=== PATIENT | female | born 1955 | race Caucasian/White ===

== ENCOUNTER 2017-02-05 15:52 | Day surgery (SDC) | payer MEDICAID ==
[~2017-02-05 15:52] MED LIST: EPINEPHRINE INJ 1 MG/10 ML DISP.SYRIN ONE; FENTANYL CITRATE INJ/PF 100 MCG/2 ML AMPUL ONE; FLUMAZENIL INJ 0.5 MG/5 ML VIAL IV ONE; GLUCAGON,HUMAN RECOMB 1 MG INJ ONE; MIDAZOLAM 2 MG/2 ML INJ ONE; NALOXONE HCL INJ/PF 0.4 MG/1 ML SDV ONE
[2017-02-05] MEDS: MIDAZOLAM 2 MG/2 ML INJ ONE ×2 (17:22→17:28)
--- NOTE | 2017-02-05 17:44 | Operative Report ---
Operative Report DATE OF SURGERY: 02/05/17 Operative Report: Pre-op diagnosis: History of GI bleed and microcytic anemia Post-op diagnosis: Large hiatal hernia with mild antral gastritis Surgery: Esophagogastroduodenoscopy with biopsy Medications: Versed 4mg Fentanyl 100mcg IV push Tissue removed: Antral biopsy for pathology Procedure: After informed consent obtained from patient, the throat was sprayed with Hurricane and conscious sedation was achieved. The upper endoscope was inserted into the esophagus under direct vision and advanced into the stomach. The duodenum was entered and examined to the second part. Endoscope was then slowly pulled out of the patient as the mucosa was examined into details. Patient tolerated procedure well. Findings Esophagus: Normal Z-line at: 32 cm Antrum: Mild erythema Body: Normal Fundus: Large hiatal hernia containing at least half of the stomach Duodenum first part: Normal Duodenum second part: Normal Plan: Await pathology. Continue omeprazole and referred to thoracic surgery OPERATION: .
[2017-02-05 19:02] VITALS: BP 155/86
[2017-02-05 20:27] LABS: FERRITIN 5.03 ng/mL (11.1-264.0)
== END 2017-02-05 19:20 | disposition home or self-care (01) ==
LOC: END 15:52
PROVIDERS: ATTEND Internal Medicine Gastroenterology
PROC: 0DB68ZX Excision of Stomach, Via Natural or Artificial Opening Endoscopic, Diagnostic (ICD-10-PCS; principal; 2017-02-05 16:30)
DX: K44.9 Diaphragmatic hernia without obstruction or gangrene (principal); K31.9 Disease of stomach and duodenum, unspecified; D50.9 Iron deficiency anemia, unspecified; R07.9 Chest pain, unspecified; K20.9 Esophagitis, unspecified; J45.909 Unspecified asthma, uncomplicated; E66.9 Obesity, unspecified; Z79.899 Other long term (current) drug therapy; Z79.51 Long term (current) use of inhaled steroids; Z91.040 Latex allergy status; Z68.31 Body mass index [BMI] 31.0-31.9, adult
CPT/HCPCS: 43239; 36415; 82728; 83540; 83550; 88342 ×2; 88305 ×2; J2250; J3010; J0171; J1610; J2310; J3490

== ENCOUNTER 2020-04-04 18:57 | Inpatient (IN) | payer MEDICARE ==
--- NOTE | 2020-04-04 20:47 | ER Document Report ---
ED Medical Screen (RME) - General Chief Complaint: Vomiting Stated Complaint: VOMITING BLOOD Time Seen by Provider: 04/04/20 20:44 Mode of Arrival: Ambulatory Information source: Patient Notes: 64-year-old female presents to ED for throwing up blood since Saturday. She states that they did call Dr. Iniguez and he told him to come to the emergency room get blood drawn. I have ordered CBC chemistry coags urine and type and screen. She does have a history of ulcers. She also has a history of spinal injuries with surgery fractures to the left and right wrist with surgery C- section hysterectomy tonsillectomy and a gallbladder removal. She states she has never smoke drink or do any drugs. She is alert respirations regular nonlabored. TRAVEL OUTSIDE OF THE [place] IN LAST 30 DAYS: No - Related Data Allergies/Adverse Reactions: moxifloxacin HCl [From Avelox] Allergy (Severe, Verified 02/04/17 14:46) SICK TO STOMACH Sulfa (Sulfonamide Antibiotics) Allergy (Intermediate, Verified 02/04/17 14:46) ITCHING latex Allergy (Mild, Verified 02/04/17 14:49) RASH aspirin Adverse Reaction (Severe, Verified 02/04/17 14:46) BLEEDING NSAIDS (Non-Steroidal Anti-Inflamma Adverse Reaction (Severe, Verified 02/04/17 14:46) BLEEDING amoxicillin Adverse Reaction (Mild, Verified 02/04/17 14:46) DOES NOT HELP WITH INFECTION Past Medical History - Social History Frequency of alcohol use: None Drug Abuse: None - Past Medical History Cardiac Medical History: Denies: Hx Coronary Artery Disease, Hx Heart Attack, Hx Hypertension - "WHITE COAT SYNDROME" Pulmonary Medical History: Reports: Hx Asthma, Hx Bronchitis, Hx Pneumonia Denies: Hx COPD Neurological Medical History: Reports: Hx Migraine. Denies: Hx Cerebrovascular Accident, Hx Seizures GI Medical History: Reports: Hx Hiatal Hernia Musculoskeltal Medical History: Reports Hx Arthritis - OSTEO ARTHRITIS Past Surgical History: Reports: Hx Hysterectomy Physical Exam - Vital signs Vitals: Temp Pulse Resp BP Pulse Ox 98.1 F 92 18 142/94 H 100 04/04/20 19:07 04/04/20 19:07 04/04/20 19:07 04/04/20 19:07 04/04/20 19:07 Course - Vital Signs Vital signs: Temp Pulse Resp BP Pulse Ox 98.1 F 92 18 142/94 H 100 04/04/20 19:07 04/04/20 19:07 04/04/20 19:07 04/04/20 19:07 04/04/20 19:07
[2020-04-04 21:36] LABS: ABSOLUTE BASOPHILS # (AUTO) 0.1 10^3/uL (0.0-0.2); ABSOLUTE EOSINOPHILS # (AUTO) 0.1 10^3/uL (0.0-0.6); ABSOLUTE LYMPHOCYTES (AUTO) 3.1 10^3/uL (0.5-4.7); ABSOLUTE MONOCYTES (AUTO) 0.4 10^3/uL (0.1-1.4); ABSOLUTE NEUT (AUTO) 4.9 10^3/uL (1.7-8.2); BASOPHILS % (AUTO) 0.8 % (0-2); EOSINOPHILS % (AUTO) 1.5 % (0-6); HEMATOCRIT 30.1 % (36.0-47.0); HEMOGLOBIN 10.2 g/dL (12.0-15.5); MEAN CORPUSCULAR HEMOGLOBIN 33.2 pg (27.0-33.4); MEAN CORPUSCULAR VOLUME 98 fl (80-97); MONOCYTES % (AUTO) 5.1 % (3-13); PLATELET COUNT 196 10^3/uL (150-450); RED BLOOD COUNT 3.08 10^6/uL (3.72-5.28); RED CELL DISTRIBUTION WIDTH 13.9 % (11.5-14.0); SEGMENTED NEUTROPHILS % (AUTO) 56.6 % (42-78); TOTAL CELLS COUNTED % (AUTO) 100 %; WHITE BLOOD COUNT 8.7 10^3/uL (4.0-10.5)
[2020-04-04 21:42] LABS: INTERNATIONAL RATION (INR) 0.91; PROTHROMBIN TIME 12.5 SEC (11.4-15.4)
[2020-04-04 21:43] LABS: APPEARANCE,URINE CLEAR; BILIRUBIN,URINE NEGATIVE (NEGATIVE); COLOR,URINE YELLOW; GLUCOSE, URINE NEGATIVE (NEGATIVE); KETONES,URINE NEGATIVE (NEGATIVE); LEUKOCYTE ESTERASE,URINE SMALL (NEGATIVE); NITRITE,URINE NEGATIVE (NEGATIVE); PARTIAL THROMBOPLASTIN TIME 23.8 SEC (23.5-35.8); PROTEIN,URINE NEGATIVE (NEGATIVE); URINE SPECIFIC GRAVITY 1.015; UROBILINOGEN,URINE NEGATIVE mg/dL (<2.0)
[2020-04-04 21:53] LABS: ALBUMIN 4.4 g/dL (3.5-5.0); ALKALINE PHOSPHATASE 86 U/L (38-126); ANION GAP 7 (5-19); ASPARTATE AMINO TRANSFERASE 35 U/L (14-36); BILIRUBIN,DIRECT 0.2 mg/dL (0.0-0.4); BILIRUBIN,TOTAL 0.2 mg/dL (0.2-1.3); BLOOD UREA NITROGEN 14 mg/dL (7-20); CALCIUM 9.1 mg/dL (8.4-10.2); CARBON DIOXIDE 29 mmol/L (22-30); CHLORIDE 104 mmol/L (98-107); GLUCOSE 102 mg/dL (75-110); POTASSIUM 4.3 mmol/L (3.6-5.0); TOTAL PROTEIN 7.5 g/dL (6.3-8.2)
[2020-04-05] MEDS ORDERED: PANTOPRAZOLE SODIUM 40 MG VIAL IV ONE (04:15)
[2020-04-05] MEDS ORDERED: ONDANSETRON HCL INJ/PF 4 MG/2 ML SDV IV ONE (04:16)
--- NOTE | 2020-04-05 04:32 | ER Document Report ---
ED GI/ - General Chief Complaint: Vomiting Stated Complaint: VOMITING BLOOD Time Seen by Provider: 04/04/20 20:44 Mode of Arrival: Ambulatory Notes: Patient is a 64-year-old female that comes emergency department for chief complaints of concerned about a GI bleed. Patient states that on Saturday she vomited multiple times with bright red blood in her vomit, she states that she has had intermittent pain in her upper abdomen with nausea. She states that she has been very careful and has had a very bland diet with mostly clear fluids over the past 2 days however during the day today she had a dark black stool and became concerned. She states she called her internal carver Dr. Iniguez and he told her to come in for evaluation. She states that she has had 2 separate GI gastrointestinal bleeds in the past, she does have a history of gastric ulcers. She is not on any blood thinners, denies any NSAIDs, smoking, alcohol. She still reports intermittent nausea but denies dizziness, passing out, chest pain, shortness of breath, current abdominal pain, flank pain. TRAVEL OUTSIDE OF THE [place] IN LAST 30 DAYS: No - Related Data Allergies/Adverse Reactions: moxifloxacin HCl [From Avelox] Allergy (Severe, Verified 02/04/17 14:46) SICK TO STOMACH Sulfa (Sulfonamide Antibiotics) Allergy (Intermediate, Verified 02/04/17 14:46) ITCHING latex Allergy (Mild, Verified 02/04/17 14:49) RASH aspirin Adverse Reaction (Severe, Verified 02/04/17 14:46) BLEEDING NSAIDS (Non-Steroidal Anti-Inflamma Adverse Reaction (Severe, Verified 02/04/17 14:46) BLEEDING amoxicillin Adverse Reaction (Mild, Verified 02/04/17 14:46) DOES NOT HELP WITH INFECTION Past Medical History - General Information source: Patient - Social History Smoking Status: Never Smoker Frequency of alcohol use: None Drug Abuse: None Lives with: Alone Family History: Reviewed & Not Pertinent Patient has homicidal ideation: No - Past Medical History Cardiac Medical History: Denies: Hx Coronary Artery Disease, Hx Heart Attack, Hx Hypertension - "WHITE COAT SYNDROME" Pulmonary Medical History: Reports: Hx Asthma, Hx Bronchitis, Hx Pneumonia Denies: Hx COPD Neurological Medical History: Reports: Hx Migraine. Denies: Hx Cerebrovascular Accident, Hx Seizures Endocrine Medical History: Reports: Hx Hypothyroidism GI Medical History: Reports: Hx Hiatal Hernia Musculoskeletal Medical History: Reports Hx Arthritis - OSTEO ARTHRITIS Past Surgical History: Reports: Hx Cholecystectomy, Hx Hysterectomy - Immunizations Immunizations up to date: Yes Hx Diphtheria, Pertussis, Tetanus Vaccination: Yes Review of Systems - Review of Systems Constitutional: No symptoms reported EENT: No symptoms reported Cardiovascular: No symptoms reported Respiratory: No symptoms reported Gastrointestinal: See HPI Genitourinary: No symptoms reported Female Genitourinary: No symptoms reported Musculoskeletal: No symptoms reported Skin: No symptoms reported Hematologic/Lymphatic: No symptoms reported Neurological/Psychological: No symptoms reported Physical Exam - Vital signs Vitals: Temp Pulse Resp BP Pulse Ox 98.1 F 92 18 142/94 H 100 04/04/20 19:07 04/04/20 19:07 04/04/20 19:07 04/04/20 19:07 04/04/20 19:07 - Notes Notes: GENERAL: Alert, interacts well. No acute distress. HEAD: Normocephalic, atraumatic. EYES: Pupils equal, round, and reactive to light. Extraocular movements intact. ENT: Oral mucosa moist, tongue midline. Oropharynx unremarkable. Airway patent. NECK: Full range of motion. Supple. Trachea midline. No lymphadenopathy. LUNGS: Clear to auscultation bilaterally, no wheezes, rales, or rhonchi. No respiratory distress. Non-tender chest wall. HEART: Regular rate and rhythm. No murmur ABDOMEN: Soft, non-tender. Non-distended. Bowel sounds present in all 4 quadrants. GENITOURINARY: Deferred RECTAL: No concerning findings externally, no masses, tenderness, or concerning findings on palpation. Stool is black in appearance and Hemoccult positive. Exam performed with [address] at bedside. EXTREMITIES: Moves all 4 extremities spontaneously. No edema, normal radial and dorsalis pedis pulses bilaterally. No cyanosis. BACK: no cervical, thoracic, lumbar midline tenderness. No saddle anesthesia, normal distal neurovascular exam. Moves all extremities in full range of motion. NEUROLOGICAL: Alert and oriented x3. Normal speech. Cranial nerves II through XII grossly intact. Strength 5/5 in all extremities. PSYCH: Normal affect, normal mood. SKIN: Warm, dry, normal turgor. No rashes or lesions noted. Course - Re-evaluation Re-evalutation: Patient is alert and well-appearing on exam. Vital signs unremarkable. Abdomen unremarkable. However on rectal exam she does have black stools and this is heme positive. This along with patient's reported symptoms are concerning for upper GI bleed in a patient with a history of peptic ulcer disease. Hemoglobin is 10.2, type and screen has been performed. Starting on Protonix bolus and drip. Patient states her internal carver told her to come to the emergency department, they will be contacted for disposition. 04/05/20 05:36 I called and spoke with Dr. Iniguez, patient's internal carver previously. I discussed the details and her evaluation. His recommendation is admission to the hospitalist service and he will consult on the patient. He request a consult be placed for him. Patient had a brief episode of hypoxia which resolved. Chest x-ray performed and unremarkable, lungs clear. Discussed with Dr. Scott, hospitalist, patient will be accepted to medical floor under the hospitalist service. - Vital Signs Vital signs: Temp Pulse Resp BP Pulse Ox 98.6 F 87 14 146/78 H 98 04/05/20 05:45 04/05/20 03:57 04/05/20 06:00 04/05/20 06:00 04/05/20 06:00 - Laboratory Result Diagrams: 04/04/20 21:19 04/04/20 21:19 Laboratory results interpreted by me: 04/04/20 04/04/20 21:19 21:19 RBC 3.08 L Hgb 10.2 L Hct 30.1 L MCV 98 H Ur Leukocyte Esterase SMALL H Discharge - Discharge Clinical Impression: Upper GI bleed Disposition: ADMITTED INPATIENT Admitting Provider: Sonia (Hospitalist) Unit Admitted: Medical Floor
[2020-04-05] MEDS ORDERED: PANTOPRAZOLE SODIUM 40 MG VIAL IV PRN (04:48)
--- NOTE | 2020-04-05 06:23 | RADIOLOGY REPORT (SQ) ---
CLINICAL HISTORY: hypoxia COMPARISON: 12/13/2015. TECHNIQUE: XR CHEST 1 VIEW 04/05/2020 5:20 AM CDT FINDINGS: Cardiac silhouette is normal in size. Lungs are clear without consolidation, atelectasis, mass or edema. There is no pleural effusion. There is no pneumothorax. There are no acute osseous findings. There are surgical clips in the midline upper abdomen, presumably from a hiatal hernia repair. IMPRESSION: Clear lungs.
[2020-04-05] MEDS ORDERED: GUAIFENESIN SYRP 200 MG/10 ML UDC PO PRN (06:25)
[2020-04-05] MEDS ORDERED: MELATONIN 5 MG TABLET PO PRN (06:25)
[2020-04-05] MEDS ORDERED: MAG HYDROX/AL HYDROX/SIMETH SUSP 30 ML UDCUP PO PRN (06:25)
[2020-04-05] MEDS ORDERED: LORAZEPAM INJ 2 MG/1 ML VIAL IV PRN (06:25)
[2020-04-05] MEDS ORDERED: MORPHINE SULFATE 10 MG/ML INJ IV PRN (06:25)
[2020-04-05] MEDS ORDERED: ACETAMINOPHEN 325 MG TABLET PO PRN (06:25)
[2020-04-05] MEDS ORDERED: MAGNESIUM HYDROXIDE SUSP 30 ML UDCUP PO PRN (06:25)
[2020-04-05] MEDS ORDERED: PROMETHAZINE HCL INJ 25 MG/1 ML VIAL IV PRN (06:26)
[2020-04-05] MEDS ORDERED: RINGERS SOLUTION,LACTATED 1,000 ML IV PRN (09:22)
[2020-04-05] MEDS ORDERED: PANTOPRAZOLE SODIUM 40 MG VIAL IV SCH (10:00)
[2020-04-05] MEDS ORDERED: GLUCAGON,HUMAN RECOMB 1 MG INJ SUBCUT PRN (10:08)
[2020-04-05] MEDS ORDERED: DEXTROSE 40% GEL 15 GM TUBE PO PRN ×2 (10:08)
[2020-04-05] MEDS ORDERED: DEXTROSE 50%-WATER 25 GM/50 ML DISP.SYRIN IV PRN ×2 (10:08)
[2020-04-05] MEDS ORDERED: OXYCODONE-ACETAMINOPHEN 5-325 MG TABLET PO PRN (10:16)
[2020-04-05 10:52] LABS: ALBUMIN 3.7 g/dL (3.5-5.0); ALKALINE PHOSPHATASE 90 U/L (38-126); ANION GAP 5 (5-19); ASPARTATE AMINO TRANSFERASE 29 U/L (14-36); BILIRUBIN,DIRECT 0.3 mg/dL (0.0-0.4); BILIRUBIN,TOTAL 0.3 mg/dL (0.2-1.3); BLOOD UREA NITROGEN 9 mg/dL (7-20); CALCIUM 8.5 mg/dL (8.4-10.2); CARBON DIOXIDE 28 mmol/L (22-30); CHLORIDE 107 mmol/L (98-107); GLUCOSE 98 mg/dL (75-110); POTASSIUM 4.2 mmol/L (3.6-5.0); TOTAL PROTEIN 6.4 g/dL (6.3-8.2)
[2020-04-05] MEDS ORDERED: (PENDING PHARMACY ID) (Oxycodone Hcl/Acetaminophen [Percocet 10-325 Mg Tablet] 1 TAB) PO PRN (10:59)
[2020-04-05] MEDS ORDERED: CARISOPRODOL 350 MG TABLET PO PRN (10:59)
[2020-04-05] MEDS ORDERED: BUTALB/ACETAMINOPHEN/CAFFEINE 1 TAB EACH PO PRN (10:59)
[2020-04-05] MEDS: LEVOTHYROXINE SODIUM 0.1 MG TABLET PO SCH (11:43)
[2020-04-05] MEDS: GABAPENTIN 300 MG CAPSULE PO SCH ×3 (11:43→23:53)
[2020-04-05 11:53] LABS: HEMATOCRIT 25.6 % (36.0-47.0); MEAN CORPUSCULAR HEMOGLOBIN 33.8 pg (27.0-33.4); MEAN CORPUSCULAR HGB CONC 35.1 g/dL (32.0-36.0); MEAN CORPUSCULAR VOLUME 96 fl (80-97); PLATELET COUNT 152 10^3/uL (150-450); RED BLOOD COUNT 2.66 10^6/uL (3.72-5.28); RED CELL DISTRIBUTION WIDTH 13.7 % (11.5-14.0); WHITE BLOOD COUNT 5.4 10^3/uL (4.0-10.5)
[2020-04-05] MEDS ORDERED: SUCCINYLCHOLINE CHLORIDE INJ 200 MG/10 ML VIAL ONE (14:01)
[2020-04-05] MEDS: OXYCODONE-ACETAMINOPHEN 5-325 MG TABLET PO PRN ×2 (16:09→22:21)
--- NOTE | 2020-04-05 16:47 | PDOC H&P ---
History of Present Illness Admission Date/PCP: 04/05/20 06:51 Patient complains of: Hemoptysis History of Present Illness: APRIL HUERTAS is a 64 year old female with past medical history of asthma, hypothyroidism, arthritis, chronic pain, gastric ulcers, esophageal stricture previously treated with dilation, hiatal hernia with repair, previous GI bleed treated with 4 units of blood (2009) who presented to the emergency department on 04/04/20 complaining of 5-6 episodes of hematemesis (described as "bright red blood") x 3 days ago with noted black tarry stool x1 day ago. Associated nausea, diarrhea left upper abdominal discomfort and generalized weakness. This prompted her to contact her fire alarm operator Dr. Iniguez who told her to present to the emergency department for evaluation. Denies blood thinners, NSAIDs, smoking or alcohol. Evaluation in the emergency department significant for heme positive stools and Hemoglobin of 10.2. CBC, coag studies, chemistries, urine and CXR otherwise unremarkable. Given patient's history and current presentation patient was then admitted to hospital services for further evaluation and treatment. 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 Musculoskeltal Medical History: Reports: Arthritis - OSTEO ARTHRITIS Psychiatric Medical History: Reports: Depression Hematology: Reports: Anemia Past Surgical History Past Surgical History: Reports: Cholecystectomy, Herniorrhaphy, Hysterectomy, O rthopedic Surgery - Jaw., Other - x2. Esophageal dilation. Social History Information Source: Patient Lives with: Alone Smoking Status: Never Smoker Electronic Cigarette use?: No Frequency of Alcohol Use: None Hx Recreational Drug Use: No Hx Prescription Drug Abuse: No - Advance Directive Resuscitation Status: Full Code Family History Family History: Reviewed & Not Pertinent Parental Family History Reviewed: Yes Children Family History Reviewed: Yes Sibling(s) Family History Reviewed.: Yes Medication/Allergy Home Medications: Butalb/Acetaminophen/Caffeine [Ochemj-Jzzqrtls-Ccis 50-325-40] 1 tab PO Q8 PRN 12/14/15 Carisoprodol 350 mg PO BIDP PRN 02/04/17 Gabapentin [Neurontin] 600 mg PO Q6 04/05/20 Levothyroxine Sodium 100 mcg PO Q6AM 04/05/20 Oxycodone HCl/Acetaminophen [Percocet 10-325 mg Tablet] 1 tab PO Q6HP PRN 04/05/20 Allergies/Adverse Reactions: moxifloxacin HCl [From Avelox] Allergy (Severe, Verified 02/04/17 14:46) SICK TO STOMACH Sulfa (Sulfonamide Antibiotics) Allergy (Intermediate, Verified 02/04/17 14:46) ITCHING latex Allergy (Mild, Verified 02/04/17 14:49) RASH aspirin Adverse Reaction (Severe, Verified 02/04/17 14:46) BLEEDING NSAIDS (Non-Steroidal Anti-Inflamma Adverse Reaction (Severe, Verified 02/04/17 14:46) BLEEDING amoxicillin Adverse Reaction (Mild, Verified 02/04/17 14:46) DOES NOT HELP WITH INFECTION Review of Systems Constitutional: PRESENT: weakness. ABSENT: anorexia, chills, fever(s), headache(s), weight loss Eyes: ABSENT: visual disturbances Nose, Mouth, and Throat: ABSENT: headache(s), mouth pain, vertigo Cardiovascular: ABSENT: chest pain, dyspnea on exertion, edema, palpitations Respiratory: ABSENT: cough, dyspnea Gastrointestinal: PRESENT: abdominal pain, diarrhea, hematemesis, melena, nausea, vomiting. ABSENT: coffee ground emesis Genitourinary: ABSENT: difficulty urinating, dysuria, hematuria Musculoskeletal: PRESENT: back pain - This is chronic Integumentary: ABSENT: diaphoresis, rash Neurological: PRESENT: weakness. ABSENT: abnormal gait, confusion, dizziness, syncope, vertigo Hematologic/Lymphatic: ABSENT: easy bleeding, easy bruising Physical Exam Vital Signs: Temp Pulse Resp BP Pulse Ox 98.4 F 80 20 125/73 100 04/05/20 11:09 04/05/20 11:09 04/05/20 11:09 04/05/20 11:04/05/20 11:09 Intake & Output 04/04/20 04/05/20 04/06/20 06:59 06:59 06:59 Weight 76.9 kg 70.3 kg General appearance: PRESENT: no acute distress, cooperative, well-developed, well-nourished Head exam: PRESENT: atraumatic, normocephalic Eye exam: PRESENT: EOMI, PERRLA. ABSENT: scleral icterus Ear exam: PRESENT: normal external ear exam. ABSENT: bleeding, drainage Mouth exam: PRESENT: dry mucosa, tongue midline Neck exam: PRESENT: full ROM. ABSENT: JVD, tenderness Respiratory exam: PRESENT: clear to auscultation jabari, symmetrical, unlabored. ABSENT: crackles, retraction, tachypnea, wheezes Cardiovascular exam: PRESENT: RRR, +S1, +S2. ABSENT: clicks, diastolic murmur, gallop, rubs, systolic murmur Pulses: PRESENT: normal radial pulses Vascular exam: PRESENT: normal capillary refill GI/Abdominal exam: PRESENT: normal bowel sounds, tenderness - Left upper quadrant. ABSENT: distended, firm, hypoactive bowel sounds Rectal exam: PRESENT: deferred Extremities exam: PRESENT: full ROM. ABSENT: calf tenderness, clubbing, pedal edema, tenderness Musculoskeletal exam: PRESENT: ambulatory, full ROM. ABSENT: deformity, dislocation Neurological exam: PRESENT: alert, awake, oriented to person, oriented to place, oriented to time, oriented to situation, CN II-XII grossly intact. ABSENT: motor sensory deficit Psychiatric exam: PRESENT: appropriate affect, normal mood Skin exam: PRESENT: dry, intact, warm. ABSENT: rash Results Laboratory Results: 04/05/20 10:10 04/05/20 10:10 04/04/20 04/04/20 04/04/20 21:19 21:19 21:19 WBC 8.7 RBC 3.08 L Hgb 10.2 L Hct 30.1 L MCV 98 H MCH 33.2 MCHC 34.0 RDW 13.9 Plt Count 196 Seg Neutrophils % 56.6 Sodium 140.3 Potassium 4.3 Chloride 104 Carbon Dioxide 29 Anion Gap 7 BUN 14 Creatinine 0.79 Est GFR ( Amer) > 60 Glucose 102 Calcium 9.1 Total Bilirubin 0.2 AST 35 Alkaline Phosphatase 86 Total Protein 7.5 Albumin 4.4 Lipase 133.1 Urine Color YELLOW Urine Appearance CLEAR Urine pH 5.0 Ur Specific [place] 1.015 Urine Protein NEGATIVE Urine Glucose (UA) NEGATIVE Urine Ketones NEGATIVE Urine Blood NEGATIVE Urine Nitrite NEGATIVE Ur Leukocyte Esterase SMALL H Urine WBC (Auto) 20 Urine RBC (Auto) 0 Blood Type Antibody Screen 0904/05/20 04/05/20 22:26 10:10 10:10 WBC 5.4 RBC 2.66 L Hgb 9.0 L Hct 25.6 L MCV 96 MCH 33.8 H MCHC 35.1 RDW 13.7 Plt Count 152 Seg Neutrophils % Sodium 139.7 Potassium 4.2 Chloride 107 Carbon Dioxide 28 Anion Gap 5 BUN 9 Creatinine 0.66 Est GFR ( Amer) > 60 Glucose 98 Calcium 8.5 Total Bilirubin 0.3 AST 29 Alkaline Phosphatase 90 Total Protein 6.4 Albumin 3.7 Lipase Urine Color Urine Appearance Urine pH Ur Specific [place] Urine Protein Urine Glucose (UA) Urine Ketones Urine Blood Urine Nitrite Ur Leukocyte Esterase Urine WBC (Auto) Urine RBC (Auto) Blood Type O POSITIVE Antibody Screen POSITIVE Impressions: Chest X-Ray 04/05/20 05:20 IMPRESSION: Clear lungs. Assessment and Plan - Diagnosis (1) Low hemoglobin and low hematocrit Is this a current diagnosis for this admission?: Yes Plan: Given patient's history of gastric ulcers and previous GI bleed along with her history of hematemesis and melena. I suspect this is secondary to upper GI bleed. This is further supported by positive heme stools in the emergency department. Hgb is currently trending downward, 10.2 in the ED-> 9.0 on most recent labs. Hematocrit trending downward as well. Her fire alarm operator was consulted on patient's case. He agrees to see the patient and has scheduled an EGD. -Patient is placed on n.p.o. status. Continue to monitor hemoglobin and hematocrit levels. -Type and cross completed. -Continue to monitor hemoglobin and hematocrit levels. -Will investigate blood transfusions in the case hemoglobin </= 7. Monitor vital signs every 4 hours. In the time being we will treat with IV fluids. Patient was instructed to inform the nurse in the event of further hematemesis and/or melena. (2) Upper GI bleed Is this a current diagnosis for this admission?: Yes Plan: We will treat as stated above. (3) Weakness generalized Is this a current diagnosis for this admission?: Yes Plan: I suspect her generalized weakness is secondary to GI bleed and/or anemia. Patient is only to ambulate with assistance. Both the nurse and the patient were made aware this both of them are agreeing and understanding. (4) Abdominal pain Qualifiers: Abdominal location: left upper quadrant Qualified Code(s): R10.12 - Left upper quadrant pain Is this a current diagnosis for this admission?: Yes Plan: Patient can utilize Zofran in the event of nausea. Patient can utilize Protonix in the event of reflux. Otherwise treatment as stated above. (5) Anemia Qualifiers: Anemia type: iron deficiency Iron deficiency anemia type: unspecified iron deficiency Qualified Code(s): D50.9 - Iron deficiency anemia, unspecified Is this a current diagnosis for this admission?: Yes Plan: Patient reports history of chronic anemia. Previously treated with iron. Stopped iron treatment after experiencing loose stools. Not currently treating. Will monitor. (6) Chronic pain Is this a current diagnosis for this admission?: Yes Plan: Patient reports history of chronic pain. She is treated at a pain clinic. With current treatment treatment regimen including gabapentin 600 mg PO q 6 hours and Percocet 10-35 mg PO q 6 hours. Home treatment resumed. (7) Hypothyroidism Qualifiers: Hypothyroidism type: acquired Qualified Code(s): E03.9 - Hypothyroidism, unspecified Is this a current diagnosis for this admission?: Yes Plan: Resume current treatment regimen. Consider thyroid labs. - Time Time Spent with patient: 35 or more minutes Medications reviewed and adjusted accordingly: Yes Anticipated Discharge Disposition: Home, Self Care Anticipated Discharge Timeframe: within 48 hours - Inpatient Certification Based on my medical assessment, after consideration of the patient's comorbidities, presenting symptoms, or acuity I expect that the services needed warrant INPATIENT care.: Yes I certify that my determination is in accordance with my understanding of Medicare's requirements for reasonable and necessary INPATIENT services [42 CFR 412.3e].: Yes Medical Necessity: Failure to Improve With Outpatient Therapy, Significant Comorbidiites Make Outpatient Treatment Too Risky, Need Close Monitoring Due to Risk of Patient Decompensation, Need For IV Fluids, Risk of Complication if Not Cared For in Hospital Post Hospital Care: D/C or Transfer Summary
[2020-04-05] MEDS ORDERED: EPINEPHRINE INJ 1 MG/10 ML DISP.SYRIN ONE (16:59)
[2020-04-05] MEDS ORDERED: PROPOFOL INJ 200 MG/20 ML VIAL IV ONE (17:23)
--- NOTE | 2020-04-05 18:21 | PDOC CONSULTATION ---
Consultation Consult Date: 04/05/20 Provider Consulted: SIVAKUMAR POLK History of Present Illness Admission Date/PCP: 04/05/20 06:51 History of Present Illness: APRIL HUERTAS is a 64 year old female Patient was admitted on 04/05/2020 with GI bleed. She apparently had 4-5 episodes of hematemesis 3 days prior to admission and black stools on the day of admission. She has been having recurrent epigastric pain for the last few months. She does not abuse alcohol or NSAIDs. On presentation to the emergency room her hemoglobin was 10 and back in 2017 when I last saw her her hemoglobin was also 10 with a ferritin of 5. Hemoglobin was 8 in 2016. 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 Musculoskeltal Medical History: Reports: Arthritis - OSTEO ARTHRITIS Psychiatric Medical History: Reports: Depression Hematology: Reports: Anemia Past Surgical History Past Surgical History: Reports: Cholecystectomy, Herniorrhaphy, Hysterectomy, Orthopedic Surgery - Jaw., Other - x2. Esophageal dilation. Social History Lives with: Alone Smoking Status: Never Smoker Electronic Cigarette use?: No Frequency of Alcohol Use: None Hx Recreational Drug Use: No Hx Prescription Drug Abuse: No - Advance Directive Resuscitation Status: Full Code Family History Family History: Reviewed & Not Pertinent Parental Family History Reviewed: No Children Family History Reviewed: NA Sibling(s) Family History Reviewed.: NA Medication/Allergy Home Medications: Butalb/Acetaminophen/Caffeine [Msnvpj-Pwscdtjn-Ofim 50-325-40] 1 tab PO Q8 PRN 12/14/15 Carisoprodol 350 mg PO BIDP PRN 02/04/17 Gabapentin [Neurontin] 600 mg PO Q6 04/05/20 Levothyroxine Sodium 100 mcg PO Q6AM 04/05/20 Oxycodone HCl/Acetaminophen [Percocet 10-325 mg Tablet] 1 tab PO Q6HP PRN 04/05/20 Allergies/Adverse Reactions: moxifloxacin HCl [From Avelox] Allergy (Severe, Verified 02/04/17 14:46) SICK TO STOMACH Sulfa (Sulfonamide Antibiotics) Allergy (Intermediate, Verified 02/04/17 14:46) ITCHING latex Allergy (Mild, Verified 02/04/17 14:49) RASH aspirin Adverse Reaction (Severe, Verified 02/04/17 14:46) BLEEDING NSAIDS (Non-Steroidal Anti-Inflamma Adverse Reaction (Severe, Verified 02/04/17 14:46) BLEEDING amoxicillin Adverse Reaction (Mild, Verified 02/04/17 14:46) DOES NOT HELP WITH INFECTION Review of Systems All systems: reviewed and no additional remarkable complaints except as stated Physical Exam Vital Signs: Temp Pulse Resp BP Pulse Ox 98.4 F 80 16 132/68 H 94 04/05/20 16:55 04/05/20 16:55 04/05/20 16:55 04/05/20 16:55 04/05/20 16:55 Intake & Output 04/04/20 04/05/20 04/06/20 06:59 06:59 06:59 Weight 76.9 kg 70.3 kg Results Laboratory Results: 04/05/20 10:10 04/05/20 10:10 04/04/20 04/04/20 04/04/20 21:19 21:19 21:19 WBC 8.7 RBC 3.08 L Hgb 10.2 L Hct 30.1 L MCV 98 H MCH 33.2 MCHC 34.0 RDW 13.9 Plt Count 196 Seg Neutrophils % 56.6 Sodium 140.3 Potassium 4.3 Chloride 104 Carbon Dioxide 29 Anion Gap 7 BUN 14 Creatinine 0.79 Est GFR ( Amer) > 60 Glucose 102 Calcium 9.1 Total Bilirubin 0.2 AST 35 Alkaline Phosphatase 86 Total Protein 7.5 Albumin 4.4 Lipase 133.1 Urine Color YELLOW Urine Appearance CLEAR Urine pH 5.0 Ur Specific [place] 1.015 Urine Protein NEGATIVE Urine Glucose (UA) NEGATIVE Urine Ketones NEGATIVE Urine Blood NEGATIVE Urine Nitrite NEGATIVE Ur Leukocyte Esterase SMALL H Urine WBC (Auto) 20 Urine RBC (Auto) 0 Blood Type Antibody Screen 04/04/20 04/05/20 04/05/20 22:26 10:10 10:10 WBC 5.4 RBC 2.66 L Hgb 9.0 L Hct 25.6 L MCV 96 MCH 33.8 H MCHC 35.1 RDW 13.7 Plt Count 152 Seg Neutrophils % Sodium 139.7 Potassium 4.2 Chloride 107 Carbon Dioxide 28 Anion Gap 5 BUN 9 Creatinine 0.66 Est GFR ( Amer) > 60 Glucose 98 Calcium 8.5 Total Bilirubin 0.3 AST 29 Alkaline Phosphatase 90 Total Protein 6.4 Albumin 3.7 Lipase Urine Color Urine Appearance Urine pH Ur Specific [place] Urine Protein Urine Glucose (UA) Urine Ketones Urine Blood Urine Nitrite Ur Leukocyte Esterase Urine WBC (Auto) Urine RBC (Auto) Blood Type O POSITIVE Antibody Screen POSITIVE Impressions: Chest X-Ray 04/05/20 05:20 IMPRESSION: Clear lungs. Assessment & Plan - Diagnosis (1) Upper GI bleed Is this a current diagnosis for this admission?: Yes Plan: She presented with hematemesis and melena consistent with an upper GI bleed. The need for an EGD was explained to the patient including the risk and benefit and she is in agreement. (2) Abdominal pain Qualifiers: Abdominal location: left upper quadrant Qualified Code(s): R10.12 - Left upper quadrant pain Is this a current diagnosis for this admission?: Yes (3) Anemia Qualifiers: Anemia type: iron deficiency Iron deficiency anemia type: unspecified iron deficiency Qualified Code(s): D50.9 - Iron deficiency anemia, unspecified Is this a current diagnosis for this admission?: Yes
--- NOTE | 2020-04-05 18:25 | Operative Report ---
Operative Report DATE OF SURGERY: 04/05/20 Operative Report: Pre-op diagnosis: Hematemesis and melena Post-op diagnosis: 1. Gastric fundal ulcer/Oscar ulcer 2. Hiatal hernia 3. Antral gastritis Surgery: Esophagogastroduodenoscopy with biopsy Medications: As per anesthesia Tissue removed: Antral and gastric body biopsy for pathology Procedure: After informed consent obtained from patient, she was intubated in the operating room.. The upper endoscope was inserted into the esophagus under direct vision and advanced into the stomach. The duodenum was entered and examined to the second part. Endoscope was then slowly pulled out of the patient as the mucosa was examined into details. Patient tolerated procedure well. Findings Esophagus: Normal Z-line at: 35 cm. A 5 cm hernia was noted with the top of the gastric fold at 40 cm Antrum: Mild erythema noted in the antrum Body: Normal Fundus: A linear 12 mm ulcer was noted in the fundus just below the neck of the hernia. There was surrounding edema but no evidence for recent bleeding. Duodenum first part: Normal Duodenum second part: Normal Plan: Await pathology. Continue PPI and follow-up EGD in 2 months. OPERATION: .
[2020-04-05] MEDS: PANTOPRAZOLE SODIUM 40 MG TABLET.DR PO SCH (19:10)
[2020-04-06] MEDS: LEVOTHYROXINE SODIUM 0.1 MG TABLET PO SCH (05:16)
[2020-04-06] MEDS: GABAPENTIN 300 MG CAPSULE PO SCH ×2 (05:16→11:00)
[2020-04-06 08:04] LABS: ABSOLUTE EOSINOPHILS # (AUTO) 0.1 10^3/uL (0.0-0.6); ABSOLUTE LYMPHOCYTES (AUTO) 1.5 10^3/uL (0.5-4.7); ABSOLUTE MONOCYTES (AUTO) 0.3 10^3/uL (0.1-1.4); ABSOLUTE NEUT (AUTO) 3.1 10^3/uL (1.7-8.2); BASOPHILS % (AUTO) 0.8 % (0-2); EOSINOPHILS % (AUTO) 1.9 % (0-6); HEMATOCRIT 27.8 % (36.0-47.0); HEMOGLOBIN 9.7 g/dL (12.0-15.5); LYMPHOCYTES % (AUTO) 29.6 % (13-45); MEAN CORPUSCULAR HEMOGLOBIN 33.9 pg (27.0-33.4); MEAN CORPUSCULAR VOLUME 97 fl (80-97); MONOCYTES % (AUTO) 6.5 % (3-13); PLATELET COUNT 154 10^3/uL (150-450); RED BLOOD COUNT 2.87 10^6/uL (3.72-5.28); RED CELL DISTRIBUTION WIDTH 13.7 % (11.5-14.0); SEGMENTED NEUTROPHILS % (AUTO) 61.2 % (42-78); TOTAL CELLS COUNTED % (AUTO) 100 %; WHITE BLOOD COUNT 5.1 10^3/uL (4.0-10.5)
[2020-04-06 08:27] LABS: ANION GAP 5 (5-19); BLOOD UREA NITROGEN 9 mg/dL (7-20); CALCIUM 9.3 mg/dL (8.4-10.2); CARBON DIOXIDE 29 mmol/L (22-30); CHLORIDE 105 mmol/L (98-107); GLUCOSE 108 mg/dL (75-110); POTASSIUM 4.3 mmol/L (3.6-5.0)
[2020-04-06] MEDS: PANTOPRAZOLE SODIUM 40 MG TABLET.DR PO SCH (11:00)
[2020-04-06] MEDS: OXYCODONE-ACETAMINOPHEN 5-325 MG TABLET PO PRN (11:04)
[2020-04-06 12:57] VITALS: BP 149/67
--- NOTE | 2020-04-06 13:11 | CDI QUERY ---
<LATOSHA JUSTIN - Last Filed: 04/06/20 13:08> CDI Query CDI Review: We are seeking further clarification of documentation to reflect the severity of illness of your patient. Documentation in the medical record indicates the following: Per ED Notes: Patient is a 64-year-old female that comes emergency department for chief complaints of concerned about a GI bleed. Patient states that on Saturday she vomited multiple times with bright red blood in her vomit, she states that she h as had intermittent pain in her upper abdomen with nausea. She states that she has been very careful and has had a very bland diet with mostly clear fluids over the past 2 days however during the day today she had a dark black stool and became concerned. Per H&P: Low hemoglobin and low hematocrit Given patient's history of gastric ulcers and previous GI bleed along with her history of hematemesis and melena. I suspect this is secondary to upper GI bleed . This is further supported by positive heme stools in the emergency department. Labs: H/H 10.2 / 30.1 9.0 / 25.6 9.7/ 27.8 Based on your medical judgement, can you further clarify in the Progress Notes > Acute blood loss anemia > Acute hemorrhagic anemia > Chronic blood loss anemia > Acute on chronic blood loss anemia > Iron deficiency anemia > Other anemia: (please specify) >None of the above / Not applicable Thank you for your consideration. LATOYA ByrneN RN Clinical Compliance Engineer Products Physician Advisor <ARMAAN ONEIL - Last Filed: 04/06/20 16:14> CDI Query CDI Review: Acute on chronic iron deficiency anemia - secondary to upper GI bleed. Agree with Query: Yes
[2020-04-06] MEDS ORDERED: BUTALB/ACETAMINOPHEN/CAFFEINE 1 TAB EACH PO PRN (15:00)
--- NOTE | 2020-04-06 18:05 | PDOC DISCHARGE SUMMARY ---
<CORAZON LOMELI - Last Filed: 04/06/20 18:08> Impression - Admit/DC Date/PCP Admission Date/Primary Care Provider: 04/05/20 06:51 - Assessment Summary: PALMER HUERTAS is a 64 year old female with past medical history of asthma, hypothyroidism, arthritis, chronic pain, gastric ulcers, esophageal stricture previously treated with dilation, hiatal hernia with repair, previous GI bleed treated with 4 units of blood (2009) who presented to the emergency department on 04/04/20 complaining of 5-6 episodes of hematemesis (described as "bright red blood") x 3 days ago with noted black tarry stool x1 day ago. Associated naus ea, diarrhea left upper abdominal discomfort and generalized weakness. This prompted her to contact her tie layer Dr. Polk who told her to present to the emergency department for evaluation. Denies blood thinners, NSAIDs, smoking or alcohol. Evaluation in the emergency department significant for heme positive stools and Hemoglobin of 10.2. CBC, coag studies, chemistries, urine and CXR otherwise unremarkable. Given patient's history and current presentation patient was then admitted to hospital services for further evaluation and treatment. During hospitalization patient was followed by both the hospital team and her tie layer Dr. Polk. Dr. Polk completed EGD which noted: gastric fundal ulcer without active bleeding, hiatal hernia, and antral gastritis. He recommended treatment with PPI BID and f/u EGD in 2 months. Gastric Ulcer: Treat with PPI XBID daily. Follow up wit Dr. Polk for repeate EGD in 2 months. Low hemoglobin and low hematocrit Suspect this is secondary to upper GI bleed. This is further supported by positive heme stools in the emergency department. Hgb initally trended downward, suspect this is secondary to fluids. Hemoglobin trending upward at time of discharge. Follow up with PCP/water purifier operator. Upper GI bleed History of gastric ulcer. We will treat as stated above. Weakness generalized Resolved prior to discharge. Abdominal pain Patient can utilize Zofran in the event of nausea. Otherwise treatment as stated above. Acute on Chronic Iron Deficiency Anemia Patient reports history of chronic iron deficiency anemia. Previously treated with iron. Stopped iron treatment after experiencing loose stools. Not currently treating. Follow up with water purifier operator regarding anemia. Chronic pain Patient reports history of chronic pain. She is treated at a pain clinic. With current treatment treatment regimen including gabapentin 600 mg PO q 6 hours and Percocet 10-35 mg PO q 6 hours. Continue with home regimen. Follow up with pain clinic as scheduled. Hypothyroidism: Thyroid not checked during stay. Continue home treatment regimen - Additional Information Resuscitation Status: Full Code Discharge Diet: As Tolerated Referrals: SIVAKUMAR POLK MD [ACTIVE STAFF] - 05/04/20 11:00 am Prescriptions: Pantoprazole Sodium [Protonix [address] Tablet] 40 mg PO BID #120 tablet. Home Medications: Butalb/Acetaminophen/Caffeine [Ntnqkj-Kfzvkcwq-Ivst 50-325-40] 1 tab PO Q8 PRN 12/14/15 Carisoprodol 350 mg PO BIDP PRN 02/04/17 Gabapentin [Neurontin] 600 mg PO Q6 04/05/20 Levothyroxine Sodium 100 mcg PO Q6AM 04/05/20 Oxycodone HCl/Acetaminophen [Percocet 10-325 mg Tablet] 1 tab PO Q6HP PRN 04/05/20 Pantoprazole Sodium [Protonix [address] Tablet] 40 mg PO BID #120 tablet. 04/06/20 History of Present Illiness History of Present Illness: APRIL HUERTAS is a 64 year old female Physical Exam Vital Signs: Temp Pulse Resp BP Pulse Ox 98.4 F 77 18 149/67 H 98 04/06/20 11:35 04/06/20 11:35 04/06/20 11:35 04/06/20 11:35 04/06/20 11:35 Intake & Output 04/05/20 04/06/20 04/07/20 06:59 06:59 06:59 Intake Total 360 240 Balance 360 240 Weight 76.9 kg 70.3 kg Results Laboratory Results: WBC 5.1 10^3/uL (4.0-10.5) 04/06/20 06:30 RBC 2.87 10^6/uL (3.72-5.28) L 04/06/20 06:30 Hgb 9.7 g/dL (12.0-15.5) L 04/06/20 06:30 Hct 27.8 % (36.0-47.0) L 04/06/20 06:30 MCV 97 fl (80-97) 04/06/20 06:30 MCH 33.9 pg (27.0-33.4) H 04/06/20 06:30 MCHC 35.0 g/dL (32.0-36.0) 04/06/20 06:30 RDW 13.7 % (11.5-14.0) 04/06/20 06:30 Plt Count 154 10^3/uL (150-450) 04/06/20 06:30 Lymph % (Auto) 29.6 % (13-45) 04/06/20 06:30 [place] % (Auto) 6.5 % (3-13) 04/06/20 06:30 Eos % (Auto) 1.9 % (0-6) 04/06/20 06:30 Baso % (Auto) 0.8 % (0-2) 04/06/20 06:30 Absolute Neuts (auto) 3.1 10^3/uL (1.7-8.2) 04/06/20 06:30 Absolute Lymphs (auto) 1.5 10^3/uL (0.5-4.7) 04/06/20 06:30 Absolute Monos (auto) 0.3 10^3/uL (0.1-1.4) 04/06/20 06:30 Absolute Eos (auto) 0.1 10^3/uL (0.0-0.6) 04/06/20 06:30 Absolute Basos (auto) 0.0 10^3/uL (0.0-0.2) 04/06/20 06:30 Seg Neutrophils % 61.2 % (42-78) 04/06/20 06:30 PT 12.5 SEC (11.4-15.4) 04/04/20 21:19 INR 0.91 04/04/20 21:19 APTT 23.8 SEC (23.5-35.8) 04/04/20 21:19 Sodium 139.1 mmol/L (137-145) 04/06/20 06:30 Potassium 4.3 mmol/L (3.6-5.0) 04/06/20 06:30 Chloride 105 mmol/L (98-107) 04/06/20 06:30 Carbon Dioxide 29 mmol/L (22-30) 04/06/20 06:30 Anion Gap 5 (5-19) 04/06/20 06:30 BUN 9 mg/dL (7-20) 04/06/20 06:30 Creatinine 0.67 mg/dL (0.52-1.25) 04/06/20 06:30 Est GFR ( Amer) > 60 (>60) 04/06/20 06:30 Est GFR (MDRD) Non-Af > 60 (>60) 04/06/20 06:30 Glucose 108 mg/dL (75-110) 04/06/20 06:30 POC Glucose 111 mg/dL (70-110) H 04/05/20 17:09 Calcium 9.3 mg/dL (8.4-10.2) 04/06/20 06:30 Magnesium 2.2 mg/dL (1.6-2.3) 04/06/20 06:30 Total Bilirubin 0.3 mg/dL (0.2-1.3) 04/05/20 10:10 Direct Bilirubin 0.3 mg/dL (0.0-0.4) 04/05/20 10:10 Neonat Total Bilirubin Not Reportable 04/05/20 10:10 Neonat Direct Bilirubin Not Reportable 04/05/20 10:10 Neonat Indirect Bili Not Reportable 04/05/20 10:10 AST 29 U/L (14-36) 04/05/20 10:10 ALT 21 U/L (<35) 04/05/20 10:10 Alkaline Phosphatase 90 U/L (38-126) 04/05/20 10:10 Total Protein 6.4 g/dL (6.3-8.2) 04/05/20 10:10 Albumin 3.7 g/dL (3.5-5.0) 04/05/20 10:10 Lipase 133.1 U/L (23-300) 04/04/20 21:19 Urine Color YELLOW 04/04/20 21:19 Urine Appearance CLEAR 04/04/20 21:19 Urine pH 5.0 (5.0-9.0) 04/04/20 21:19 Ur Specific [place] 1.015 04/04/20 21:19 Urine Protein NEGATIVE mg/dL (NEGATIVE) 04/04/20 21:19 Urine Glucose (UA) NEGATIVE mg/dL (NEGATIVE) 04/04/20 21:19 Urine Ketones NEGATIVE mg/dL (NEGATIVE) 04/04/20 21:19 Urine Blood NEGATIVE (NEGATIVE) 04/04/20 21:19 Urine Nitrite NEGATIVE (NEGATIVE) 04/04/20 21:19 Urine Bilirubin NEGATIVE (NEGATIVE) 04/04/20 21:19 Urine Urobilinogen NEGATIVE mg/dL (<2.0) 04/04/20 21:19 Ur Leukocyte Esterase SMALL (NEGATIVE) H 04/04/20 21:19 Urine WBC (Auto) 20 /HPF 04/04/20 21:19 Urine RBC (Auto) 0 /HPF 04/04/20 21:19 U Hyaline Cast (Auto) 1 /LPF 04/04/20 21:19 Squamous Epi Cells Auto <1 /HPF 04/04/20 21:19 Urine Mucus (Auto) RARE /LPF 04/04/20 21:19 Urine Ascorbic Acid NEGATIVE (NEGATIVE) 04/04/20 21:19 POC Stool Occult Blood POSITIVE (NEGATIVE) 04/05/20 04:31 Blood Type O POSITIVE 04/04/20 22:26 Antibody Screen POSITIVE 04/04/20 22:26 Ab Screen Tube Method POSITIVE 04/04/20 22:26 Antibody Identification Anti-Fya 04/04/20 22:26 Antigen Identification Fya Antigen - NEGATIVE 04/04/20 22:26 Impressions: Chest X-Ray 04/05/20 05:20 IMPRESSION: Clear lungs. Plan Health Concerns: GI bleed need for transfusion. Plan of Treatment: PPI daily, follow up with GI for repeat EGDs to monitor. Follow up with PCP/Track Mechanic for anemia management. Goals: Resolution of gastric ulcer with treatment. <ARMAAN ONELI - Last Filed: 04/06/20 18:30> Impression - Admit/DC Date/PCP Admission Date/Primary Care Provider: 04/05/20 06:51 Discharge Date: 04/06/20 - Discharge Diagnosis (1) Gastric ulcer Is this a current diagnosis for this admission?: Yes (2) Low hemoglobin and low hematocrit Is this a current diagnosis for this admission?: Yes (3) Upper GI bleed Is this a current diagnosis for this admission?: Yes (4) Weakness generalized Is this a current diagnosis for this admission?: Yes (5) Abdominal pain Is this a current diagnosis for this admission?: Yes (6) Iron deficiency anemia Is this a current diagnosis for this admission?: Yes (7) Chronic pain Is this a current diagnosis for this admission?: Yes (8) Hypothyroidism Is this a current diagnosis for this admission?: Yes - Additional Information Resuscitation Status: Full Code Discharge Diet: As Tolerated Discharge Activity: Activity As Tolerated Physical Exam Vital Signs: Temp Pulse Resp BP Pulse Ox 98.4 F 77 18 149/67 H 98 04/06/20 11:35 04/06/20 11:35 04/06/20 11:35 04/06/20 11:35 04/06/20 11:35 Intake & Output 04/05/20 04/06/20 04/07/20 06:59 06:59 06:59 Intake Total 360 240 Balance 360 240 Weight 76.9 kg 70.3 kg General appearance: PRESENT: no acute distress, cooperative, well-developed, well-nourished Head exam: PRESENT: atraumatic, normocephalic Eye exam: PRESENT: conjunctiva pink, EOMI, PERRLA. ABSENT: scleral icterus Ear exam: PRESENT: normal external ear exam. ABSENT: bleeding, drainage Mouth exam: PRESENT: moist, tongue midline Neck exam: PRESENT: full ROM. ABSENT: tenderness Respiratory exam: PRESENT: clear to auscultation jabari, symmetrical, unlabored. ABSENT: tachypnea Cardiovascular exam: PRESENT: RRR, +S1, +S2. ABSENT: diastolic murmur, rubs, systolic murmur Pulses: PRESENT: normal radial pulses GI/Abdominal exam: PRESENT: normal bowel sounds, soft, tenderness - LUQ. ABSENT: ascites, distended, firm, guarding, rigid Rectal exam: PRESENT: deferred Extremities exam: PRESENT: full ROM. ABSENT: clubbing, pedal edema Musculoskeletal exam: PRESENT: full ROM. ABSENT: deformity, dislocation Neurological exam: PRESENT: alert, awake, oriented to person, oriented to place, oriented to time, oriented to situation, CN II-XII grossly intact Psychiatric exam: PRESENT: appropriate affect, normal mood Skin exam: PRESENT: dry, intact, warm. ABSENT: erythema Results Laboratory Results: WBC 5.1 10^3/uL (4.0-10.5) 04/06/20 06:30 RBC 2.87 10^6/uL (3.72-5.28) L 04/06/20 06:30 Hgb 9.7 g/dL (12.0-15.5) L 04/06/20 06:30 Hct 27.8 % (36.0-47.0) L 04/06/20 06:30 MCV 97 fl (80-97) 04/06/20 06:30 MCH 33.9 pg (27.0-33.4) H 04/06/20 06:30 MCHC 35.0 g/dL (32.0-36.0) 04/06/20 06:30 RDW 13.7 % (11.5-14.0) 04/06/20 06:30 Plt Count 154 10^3/uL (150-450) 04/06/20 06:30 Lymph % (Auto) 29.6 % (13-45) 04/06/20 06:30 [place] % (Auto) 6.5 % (3-13) 04/06/20 06:30 Eos % (Auto) 1.9 % (0-6) 04/06/20 06:30 Baso % (Auto) 0.8 % (0-2) 04/06/20 06:30 Absolute Neuts (auto) 3.1 10^3/uL (1.7-8.2) 04/06/20 06:30 Absolute Lymphs (auto) 1.5 10^3/uL (0.5-4.7) 04/06/20 06:30 Absolute Monos (auto) 0.3 10^3/uL (0.1-1.4) 04/06/20 06:30 Absolute Eos (auto) 0.1 10^3/uL (0.0-0.6) 04/06/20 06:30 Absolute Basos (auto) 0.0 10^3/uL (0.0-0.2) 04/06/20 06:30 Seg Neutrophils % 61.2 % (42-78) 04/06/20 06:30 PT 12.5 SEC (11.4-15.4) 04/04/20 21: INR 0.91 04/04/20 21:19 APTT 23.8 SEC (23.5-35.8) 04/04/20 21:19 Sodium 139.1 mmol/L (137-145) 04/06/20 06:30 Potassium 4.3 mmol/L (3.6-5.0) 04/06/20 06:30 Chloride 105 mmol/L (98-107) 04/06/20 06:30 Carbon Dioxide 29 mmol/L (22-30) 04/06/20 06:30 Anion Gap 5 (5-19) 04/06/20 06:30 BUN 9 mg/dL (7-20) 04/06/20 06:30 Creatinine 0.67 mg/dL (0.52-1.25) 04/06/20 06:30 Est GFR ( Amer) > 60 (>60) 04/06/20 06:30 Est GFR (MDRD) Non-Af > 60 (>60) 04/06/20 06:30 Glucose 108 mg/dL (75-110) 04/06/20 06:30 POC Glucose 111 mg/dL (70-110) H 04/05/20 17:09 Calcium 9.3 mg/dL (8.4-10.2) 04/06/20 06:30 Magnesium 2.2 mg/dL (1.6-2.3) 04/06/20 06:30 Total Bilirubin 0.3 mg/dL (0.2-1.3) 04/05/20 10:10 Direct Bilirubin 0.3 mg/dL (0.0-0.4) 04/05/20 10:10 Neonat Total Bilirubin Not Reportable 04/05/20 10:10 Neonat Direct Bilirubin Not Reportable 04/05/20 10:10 Neonat Indirect Bili Not Reportable 04/05/20 10:10 AST 29 U/L (14-36) 04/05/20 10:10 ALT 21 U/L (<35) 04/05/20 10:10 Alkaline Phosphatase 90 U/L (38-126) 04/05/20 10:10 Total Protein 6.4 g/dL (6.3-8.2) 04/05/20 10:10 Albumin 3.7 g/dL (3.5-5.0) 04/05/20 10:10 Lipase 133.1 U/L (23-300) 04/04/20 21:19 Urine Color YELLOW 04/04/20 21:19 Urine Appearance CLEAR 04/04/20 21:19 Urine pH 5.0 (5.0-9.0) 04/04/20 21:19 Ur Specific [place] 1.015 04/04/20 21:19 Urine Protein NEGATIVE mg/dL (NEGATIVE) 04/04/20 21:19 Urine Glucose (UA) NEGATIVE mg/dL (NEGATIVE) 04/04/20 21:19 Urine Ketones NEGATIVE mg/dL (NEGATIVE) 04/04/20 21:19 Urine Blood NEGATIVE (NEGATIVE) 04/04/20 21:19 Urine Nitrite NEGATIVE (NEGATIVE) 04/04/20 21:19 Urine Bilirubin NEGATIVE (NEGATIVE) 04/04/20 21:19 Urine Urobilinogen NEGATIVE mg/dL (<2.0) 04/04/20 21:19 Ur Leukocyte Esterase SMALL (NEGATIVE) H 04/04/20 21:19 Urine WBC (Auto) 20 /HPF 04/04/20 21:19 Urine RBC (Auto) 0 /HPF 04/04/20 21:19 U Hyaline Cast (Auto) 1 /LPF 04/04/20 21:19 Squamous Epi Cells Auto <1 /HPF 04/04/20 21:19 Urine Mucus (Auto) RARE /LPF 04/04/20 21:19 Urine Ascorbic Acid NEGATIVE (NEGATIVE) 04/04/20 21:19 POC Stool Occult Blood POSITIVE (NEGATIVE) 04/05/20 04:31 Blood Type O POSITIVE 04/04/20 22:26 Antibody Screen POSITIVE 04/04/20 22:26 Ab Screen Tube Method POSITIVE 04/04/20 22:26 Antibody Identification Anti-Fya 04/04/20 22:26 Antigen Identification Fya Antigen - NEGATIVE 04/04/20 22:26 Impressions: Chest X-Ray 04/05/20 05:20 IMPRESSION: Clear lungs. Plan Time Spent: Greater than 30 Minutes Stroke Is this a Stroke Patient?: No Acute Heart Failure Is this a Heart Failure Patient?: No
== END 2020-04-06 17:12 | disposition home or self-care (01) | DRG 379 ==
LOC: ER 18:57 → EH 04-05 06:51 → 4W 04-05 08:38
PROVIDERS: ADMIT Emergency Medicine; ATTEND Hospitalist
PROC: 0DB78ZX Excision of Stomach, Pylorus, Via Natural or Artificial Opening Endoscopic, Diagnostic (ICD-10-PCS; principal; 2020-04-05 17:30)
DX: K25.4 Chronic or unspecified gastric ulcer with hemorrhage (principal); D50.9 Iron deficiency anemia, unspecified; I10 Essential (primary) hypertension; M19.90 Unspecified osteoarthritis, unspecified site; J45.909 Unspecified asthma, uncomplicated; K29.50 Unspecified chronic gastritis without bleeding; E03.9 Hypothyroidism, unspecified; G89.29 Other chronic pain; K44.9 Diaphragmatic hernia without obstruction or gangrene; Z90.710 Acquired absence of both cervix and uterus; Z87.11 Personal history of peptic ulcer disease; Z88.6 Allergy status to analgesic agent; Z88.2 Allergy status to sulfonamides; Z88.1 Allergy status to other antibiotic agents; Z91.040 Latex allergy status; Z90.49 Acquired absence of other specified parts of digestive tract
CPT/HCPCS: 36415; 43239; 71045; 731; 80048; 80053; 81001; 82270; 82962; 83690; 83735; 85025; 85027; 85610; 85730; 86850; 86870; 86900; 86901; 86902; 87086; 88305; 88342; 96365; 96366; 96375; 99285; C9113; J0171; J0330; J2405; J2704; J3490; J7120